=== PATIENT | female | born 1970 | race Caucasian/White ===

== ENCOUNTER → 2017-10-05 | Outpatient (CLI) | payer BC ==
[~2017-10-05] MED LIST: ALBU90OI INH; FLUSAL1005
[2017-10-07 13:03] LABS: HPV Genotype 16 Not Detected (NOTDET); HPV Genotype 18 Not Detected (NOTDET)
[2017-10-13 08:12] LABS: HPV High Risk Other Not Detected (NOTDET)
[2017-10-14 09:37] LABS: Source VAG/CERVIX
== END | disposition home or self-care (01) ==
LOC: LAB 15:31 → LAB SHORT 15:31
PROVIDERS: Obstetrics & Gynecology
DX: Z01.419 Encounter for gynecological examination (general) (routine) without abnormal findings (principal)
CPT/HCPCS: 87624; G0123

== ENCOUNTER → 2019-04-30 | Outpatient (CLI) | payer BC | END | disposition home or self-care (01) | LOC: LAB 11:15 → LAB SHORT 11:15 | DX: R35.0 Frequency of micturition (principal) | CPT/HCPCS: 87086 ==